=== PATIENT | female | born 1995 | race Caucasian/White ===

== ENCOUNTER → 2020-11-15 | Outpatient (CLI) | payer OTHER ==
[2020-11-15 16:13] LABS: BASO % 0.5 % (0.0-1.0); EOS # 0.3 10^3/uL (0.0-0.5); EOS % 5.2 % (0.0-3.0); HEMATOCRIT 41.3 % (36.0-47.0); HEMOGLOBIN 13.4 g/dl (12.0-15.5); LYMPH # 2.1 10^3/uL (1.5-5.0); LYMPH % 36.2 % (24.0-44.0); MEAN CORPUSCULAR HEMOGLOBIN 29.8 pg (27.0-33.0); MEAN CORPUSCULAR HGB CONC 32.4 g/dl (32.0-36.5); MEAN CORPUSCULAR VOLUME 91.8 fl (80.0-96.0); MONO # 0.5 10^3/uL (0.0-0.8); MONO % 9.2 % (2.0-8.0); NEUTROPHILS # 2.8 10^3/uL (1.5-8.5); NEUTROPHILS % 48.6 % (36.0-66.0); PLATELET COUNT, AUTOMATED 269 10^3/uL (150-450); WHITE BLOOD COUNT 5.8 10^3/uL (4.0-10.0)
[2020-11-15 19:45] LABS: BLOOD UREA NITROGEN 14 MG/DL (7-18); CALCIUM LEVEL 9.3 MG/DL (8.5-10.1); CARBON DIOXIDE LEVEL 26 MEQ/L (21-32); CHLORIDE LEVEL 107 MEQ/L (98-107); CREATININE FOR GFR 0.67 MG/DL (0.55-1.30); GLOMERULAR FILTRATION RATE > 60.0 (>60); GLUCOSE, FASTING 101 MG/DL (70-100); POTASSIUM SERUM 4.1 MEQ/L (3.5-5.1); SODIUM LEVEL 141 MEQ/L (136-145); THYROID STIMULATING HORMONE 0.755 uIU/ML (0.358-3.740)
== END ==
LOC: M WUC 11:10
PROVIDERS: ATTEND Physician Assistant
DX: R22.1 Localized swelling, mass and lump, neck (principal)

== ENCOUNTER → 2020-11-22 | Outpatient (CLI) | payer OTHER ==
--- NOTE | 2020-11-22 17:45 | REP ---
INDICATION: SWELLING OF NECK, MASS AND LUMP NECK COMPARISON: None. TECHNIQUE: Hicks scale and color evaluation of the thyroid gland using the linear high frequency transducer. FINDINGS: The thyroid gland is normal in contour, shape, size, and echogenicity. No nodule/mass or cystic abnormalities are appreciated. Right thyroid lobe measures 4.7 x 1.6 x 1.9 cm and includes 9 x 7 x 6 mm lower pole cyst with debris. Isthmus measures 4 mm in width. Left thyroid lobe measures 4.1 x 1.6 x 1.5 cm. IMPRESSION: Essentially normal thyroid ultrasound. <Electronically signed by Reagan Sun > 11/22/20 [id number]
== END ==
LOC: M RAD 17:04 → EDUNIT# 17:30
PROVIDERS: ATTEND Physician Assistant
DX: E04.1 Nontoxic single thyroid nodule (principal); R22.1 Localized swelling, mass and lump, neck

== ENCOUNTER 2022-01-30 09:04 | Inpatient (IN) | payer OTHER ==
[2022-01-30] VITALS (10 sets, daily range): BP systolic 126–144; BP diastolic 61–93
[~2022-01-30] VITALS: Ht 167.6 cm; Wt 101.0 kg
[2022-01-30] MEDS ORDERED: ZYRTTAB8 PO (09:36)
[2022-01-30] MEDS ORDERED: LACTATED RINGER'S 1000 ML IV STA (09:41)
[2022-01-30] MEDS ORDERED: CARBOPROST TROMETHAMINE 250 MCG/ML AMP IM PRN (09:45)
[2022-01-30] MEDS: LR 1,000 ML IV SCH ×2 (09:45→17:45)
[2022-01-30] MEDS ORDERED: LIDOCAINE 1% MDV 20ML VIAL INFIL PRN (09:45)
[2022-01-30] MEDS ORDERED: TRANEXAMIC ACID INJection 1,000 MG in NS 100 ML IV PRN (09:45)
[2022-01-30] MEDS ORDERED: miSOPROStol 25MCG 1/4 TABLET PV ONE (09:45)
[2022-01-30] MEDS ORDERED: OXYTOCIN DRIP 30 UNITS in IV 1 EA IV SCH ×2 (09:45→16:55)
[2022-01-30] MEDS ORDERED: OXYTOCIN INJ 10UNITS/ML 1ML VIAL IM PRN (09:45)
[2022-01-30] MEDS ORDERED: LR 1,000 ML IV SCH ×2 (09:45)
[2022-01-30] MEDS ORDERED: METHYLERGONOVINE MALEATE 0.2 MG/ML VIAL (J2210) IM PRN (09:45)
[2022-01-30] MEDS ORDERED: OXYTOCIN DRIP 30 UNITS in IV 1 EA IV PRN ×6 (09:45)
[2022-01-30] MEDS ORDERED: HOME MED LIST COMPLETE! XX SCH (09:50)
[2022-01-30 11:09] LABS: BASO % 0.4 % (0.0-1.0); EOS # 0.5 10^3/uL (0.0-0.5); EOS % 4.3 % (0.0-3.0); HEMATOCRIT 35.6 % (36.0-47.0); HEMOGLOBIN 12.1 g/dl (12.0-15.5); LYMPH # 1.1 10^3/uL (1.5-5.0); LYMPH % 10.7 % (24.0-44.0); MEAN CORPUSCULAR HEMOGLOBIN 31.2 pg (27.0-33.0); MEAN CORPUSCULAR VOLUME 91.8 fl (80.0-96.0); MONO # 0.9 10^3/uL (0.0-0.8); MONO % 8.2 % (2.0-8.0); NEUTROPHILS # 7.9 10^3/uL (1.5-8.5); NEUTROPHILS % 75.3 % (36.0-66.0); PLATELET COUNT, AUTOMATED 192 10^3/uL (150-450); RED BLOOD COUNT 3.88 10^6/uL (4.00-5.40); WHITE BLOOD COUNT 10.5 10^3/uL (4.0-10.0)
[2022-01-30] MEDS ORDERED: diphenhydrAMINE 50MG/ML VIAL IV PRN (18:15)
[2022-01-30] MEDS ORDERED: FENTANYL/ROPIVACAINE/NACL BAG 100 ML EPIDURAL SCH (18:15)
[2022-01-30] MEDS ORDERED: ONDANSETRON 4MG 2ML VIAL IV PRN (18:15)
[2022-01-30] MEDS ORDERED: EPIDURAL/PCA KEYS XX PRN (18:15)
[2022-01-30] MEDS ORDERED: LR 500 ML IV PRN (18:15)
[2022-01-30] MEDS ORDERED: ePHEDrine SULFATE 25 MG/5 ML(5MG/ML) SYRINGE IVP PRN (18:15)
[2022-01-30] MEDS ORDERED: NALOXONE INJ 0.4MG/1ML VIAL IV PRN (18:15)
[2022-01-30] MEDS ORDERED: METHYLERGONOVINE MALEATE 0.2 MG TAB PO PRN (18:55)
[2022-01-30] MEDS ORDERED: ACETAMINOPHEN 500 MG TAB PO PRN (18:55)
[2022-01-30] MEDS ORDERED: IBUPROFEN 800 MG TAB PO PRN (18:55)
[2022-01-30] MEDS ORDERED: RHOGAM 300 MCG (1500 IU) INJ (J2790) IM SCH (18:55)
[2022-01-30] MEDS ORDERED: DIBUCAINE 1% OINTMENT 30GM TOP PRN (18:55)
[2022-01-30] MEDS ORDERED: ANUSOL HC CREAM 30GM TOP PRN (18:55)
[2022-01-30] MEDS ORDERED: ACETAMINOPHEN TAB 650MG DOSE (2X325MG) PO PRN (18:55)
[2022-01-30] MEDS ORDERED: DOCUSATE SODIUM 100MG CAPSULE PO PRN (18:55)
[2022-01-30] MEDS ORDERED: IBUPROFEN 600MG TAB PO PRN (18:55)
[2022-01-31] MEDS: LR 1,000 ML IV SCH (01:45)
[2022-01-31 05:55] LABS: HEMATOCRIT 33.4 % (36.0-47.0); HEMOGLOBIN 11.2 g/dl (12.0-15.5); MEAN CORPUSCULAR HEMOGLOBIN 30.8 pg (27.0-33.0); MEAN CORPUSCULAR HGB CONC 33.5 g/dl (32.0-36.5); MEAN CORPUSCULAR VOLUME 91.8 fl (80.0-96.0); PLATELET COUNT, AUTOMATED 178 10^3/uL (150-450); RED BLOOD COUNT 3.64 10^6/uL (4.00-5.40); WHITE BLOOD COUNT 13.4 10^3/uL (4.0-10.0)
[2022-01-31 06:10] VITALS: BP 121/62
[2022-01-31] MEDS: PRENATAL VITAMINS CHEWABLE TABLET PO SCH (07:53)
[2022-01-31 18:00] VITALS: BP 118/68
[2022-01-31] MEDS ORDERED: INFLUENZA QUADRIVALENT PF VACCINE 0.5ML SYRINGE IM.IMMUN ONE (18:00)
[2022-02-01 06:00] VITALS: BP 124/79
[2022-02-01] MEDS: PRENATAL VITAMINS CHEWABLE TABLET PO SCH (07:25)
[2022-02-01] MEDS ORDERED: MEASLES,MUMPS,RUBELLA VACCINE INJ (MMR-II) (90707) SC.IMMUN ONE (09:00)
== END 2022-02-01 13:25 | disposition home or self-care (01) | DRG 807 ==
LOC: M LDI 09:04 → M OBS 19:50
PROVIDERS: ADMIT Obstetrics & Gynecology; ATTEND Obstetrics & Gynecology
PROC: 10E0XZZ Delivery of Products of Conception, External Approach (ICD-10-PCS; principal; 2022-01-30)
PROC: 3E0P7GC Introduction of Other Therapeutic Substance into Female Reproductive, Via Natural or Artificial Opening (ICD-10-PCS; 2022-01-30)
DX: O48.0 Post-term pregnancy (principal); Z37.0 Single live birth; Z3A.40 40 weeks gestation of pregnancy; O70.0 First degree perineal laceration during delivery

== ENCOUNTER 2022-04-11 11:18 | Emergency (ER) | payer OTHER ==
[~2022-04-11] VITALS: Ht 167.6 cm; Wt 84.7 kg
[~2022-04-11 11:18] MED LIST: ZYRTTAB8 PO
[2022-04-11] MEDS ORDERED: AMOX875T2 PO (11:25)
[2022-04-11] MEDS ORDERED: SERT25TA21 PO (11:25)
[2022-04-11 13:43] LABS: BASO # 0.1 10^3/uL (0.0-0.2); BASO % 0.6 % (0.0-1.0); EOS # 0.2 10^3/uL (0.0-0.5); EOS % 3.1 % (0.0-3.0); HEMATOCRIT 39.1 % (36.0-47.0); HEMOGLOBIN 12.3 g/dl (12.0-15.5); LYMPH # 1.4 10^3/uL (1.5-5.0); LYMPH % 17.8 % (24.0-44.0); MEAN CORPUSCULAR HEMOGLOBIN 29.1 pg (27.0-33.0); MEAN CORPUSCULAR HGB CONC 31.5 g/dl (32.0-36.5); MEAN CORPUSCULAR VOLUME 92.4 fl (80.0-96.0); MONO # 0.5 10^3/uL (0.0-0.8); NEUTROPHILS # 5.5 10^3/uL (1.5-8.5); NEUTROPHILS % 71.2 % (36.0-66.0); PLATELET COUNT, AUTOMATED 264 10^3/uL (150-450); RED BLOOD COUNT 4.23 10^6/uL (4.00-5.40); WHITE BLOOD COUNT 7.7 10^3/uL (4.0-10.0)
[2022-04-11 14:06] LABS: CPK CREATINE PHOSPHOKINASE 62 U/L (34-145)
[2022-04-11 14:07] LABS: CK-MB VALUE MASS < 1.0 NG/ML (<3.6); MB/CK RELATIVE INDEX 1.61 (< OR =4)
[2022-04-11 14:10] LABS: THYROXINE (T4) 10.3 UG/DL (4.5-10.9)
[2022-04-11 14:11] LABS: FREE THYROXINE INDEX 3.9 % (1.3-4.8); T UPTAKE 37.7 % (22.5-37.0)
[2022-04-11] MEDS ORDERED: HYDR-3363 PO (14:17)
[2022-04-11 14:23] VITALS: BP 141/87
== END 2022-04-11 14:26 | disposition home or self-care (01) ==
LOC: M ED 11:18
DX: R00.2 Palpitations (principal); F41.9 Anxiety disorder, unspecified; R00.0 Tachycardia, unspecified; M41.34 Thoracogenic scoliosis, thoracic region